=== PATIENT | female | born 1940 | race Caucasian/White ===

== ENCOUNTER 2017-10-04 14:37 | Observation (INO) | payer OTHER ==
[~2017-10-04] VITALS: Ht 170.2 cm; Wt 85.7 kg
[~2017-10-04 14:37] MED LIST: ACETYL L-CARNI500 MG PO; ALPHA LIPOIC AC50 M1 PO; BETA CAROT10000 UNIT PO; BIOTIN5 MG PO; CALCIUM AND MA1 EACH PO; CHROMIUM PICO200 MC1 PO; CO Q-10100 MG PO; DIGESTIVE EN1 TABLET PO; DIOVAN160 MG PO; EVENING PRIMRO500 M1 PO; FOLIC ACID0.8 MG PO; GINKGO BILOBA120 MG PO; GLUCOSAMINE &1 EACH PO; L-ARGININE500 MG PO; LECITHIN PO; LEVOTHYROXINE50 MCG PO; LIPITOR5 MG PO; LISINOPRIL10 MG PO; LUTEIN 15 MG S1 EACH PO; MSM1000 MG PO; MULTIVITAMINS1 EAC3 PO; NIASPAN,SLO-N1000 MG PO; NIASPAN,SLO-NI500 MG PO; SPIRULINA500 MG PO; TRIPLE OMEGA 31 EACH PO; UBIQUINOL PO; VITAMIN C500 M1 PO; VITAMIN D31000 UNIT PO; VITAMIN E COMP1 EACH PO; ZINC30 M1 PO; [UNRECOGNIZED DRUG - OTHER] PO; [UNRECOGNIZED DRUG - OTHER] PO; [UNRECOGNIZED DRUG - OTHER] PO
[2017-10-04 14:57] LABS: HEMOGLOBIN 14.4 G/DL (11.9-15.5); MCH 30.9 PG (29.0-34.0); MCHC 35.1 G/DL (30.0-36.0); PLATELET COUNT 225 K/uL (156-360); RBC DIS.WIDTH-CV 12.3 % (11.8-14.6); RBC DIS.WIDTH-SD 39.7 % (39-53); RED BLOOD COUNT 4.66 M/uL (3.80-5.20); WHITE BLOOD COUNT 6.4 K/uL (4.1-10.2)
[2017-10-04 15:05] LABS: CHLORIDE 102 mEq/L (99-109); POTASSIUM 3.7 mEq/L (3.7-5.4); PTT 28.4 SEC (25-37); SODIUM 139 mEq/L (136-147)
[2017-10-04 15:07] LABS: GLUCOSE 105 mg/dL (70-99)
[2017-10-04 15:11] LABS: CREATININE 0.7 mg/dL (0.6-1.3); GFR ESTIMATE (CALCULATED) > 59 mL/min/; UREA NITROGEN (BUN) 11 mg/dL (9-23)
[2017-10-04 15:19] LABS: TROP-I INTERPRETATION NEGATIVE; TROPONIN-I < 0.01 ng/mL (0.0-0.30)
[2017-10-04 15:51] LABS: APPEARANCE CLEAR ((CLEAR)); BILIRUBIN NEGATIVE; BLOOD NEGATIVE; COLOR YELLOW ((YELLOW)); GLUCOSE (STRIP) NEGATIVE; KETONES NEGATIVE; LEUKOCYTES NEGATIVE; NITRITE NEGATIVE; PROTEIN (STRIP) NEGATIVE; SPECIFIC GRAVITY 1.006 (1.000-1.030); UCUL ADDED? NO; UROBILINOGEN 0.2 MG/DL (0.2-1.0)
[2017-10-04] MEDS ORDERED: [UNRECOGNIZED DRUG - OTHER] PO (17:22)
[2017-10-04] MEDS ORDERED: [UNRECOGNIZED DRUG - OTHER] PO (17:23)
[2017-10-04] MEDS ORDERED: [UNRECOGNIZED DRUG - OTHER] PO (17:23)
[2017-10-04] MEDS ORDERED: MACUGUARD PO (17:23)
[2017-10-04 21:14] LABS: HDL CHOLESTEROL 60 MG/DL (Desirable>=50); LDL CHOLESTEROL 138 mg/dL (Desirable<100); NON-HDL CHOLESTEROL 186 mg/dL (Desirable<160); TOTAL CHOLESTEROL 246 mg/dL (Desirable<200); TRIGLYCERIDES 240 MG/DL (Normal: <150)
[2017-10-04 21:23] VITALS: BP 143/89
[2017-10-05 06:01] LABS: HEMATOCRIT 36.9 % (36.0-46.0); MCH 29.9 PG (29.0-34.0); MCHC 33.3 G/DL (30.0-36.0); MCV 89.8 FL (83-99); PLATELET COUNT 206 K/uL (156-360); RBC DIS.WIDTH-CV 12.3 % (11.8-14.6); RBC DIS.WIDTH-SD 40.9 % (39-53); RED BLOOD COUNT 4.11 M/uL (3.80-5.20); WHITE BLOOD COUNT 4.1 K/uL (4.1-10.2)
[2017-10-05 06:08] LABS: HEMOGLOBIN 12.3 G/DL (11.9-15.5)
[2017-10-05 06:15] LABS: ALBUMIN 3.7 G/DL (3.2-4.8); ALKALINE PHOSPHATASE 32 IU/L (3-129); ALT (GPT) 14 IU/L (3-49); AST (GOT) 15 IU/L (2-34); CHLORIDE 104 MEQ/L (99-109); CREATININE 0.8 MG/DL (0.6-1.3); GFR ESTIMATE (CALCULATED) > 59 mL/min/; GLUCOSE 94 mg/dL (70-99); POTASSIUM 3.8 MEQ/L (3.7-5.4); SODIUM 136 MEQ/L (136-147); TOTAL BILIRUBIN 0.7 MG/DL (0.0-1.0); UREA NITROGEN (BUN) 12 mg/dL (9-23)
[2017-10-05 07:00] VITALS: BP 117/57
[2017-10-05 08:00] VITALS: BP 138/80
[2017-10-05 11:39] VITALS: BP 136/85
[2017-10-05 14:06] LABS: TROP-I INTERPRETATION NEGATIVE; TROPONIN-I < 0.01 ng/mL (0.0-0.30)
[2017-10-05 15:21] VITALS: BP 137/70
[2017-10-05 19:00] VITALS: BP 168/86
[2017-10-05 23:51] VITALS: BP 125/70
[2017-10-06 03:42] VITALS: BP 123/71
[2017-10-06 08:05] VITALS: BP 133/81
[2017-10-06 08:07] LABS: HEMOGLOBIN A1c (GLYCOHEMOGLOB) 5.5 % (Below 5.7)
[2017-10-06 10:51] LABS: TROP-I INTERPRETATION NEGATIVE; TROPONIN-I < 0.01 ng/mL (0.0-0.30)
[2017-10-06] MEDS ORDERED: ELIQUIS5 MG PO (11:03)
[2017-10-06] MEDS ORDERED: ATORVASTATIN CA10 MG PO (11:15)
[2017-10-06 11:41] VITALS: BP 130/82
== END 2017-10-06 12:20 | disposition home or self-care (01) ==
LOC: EME 14:37 → EDOF 18:48 → 5WEST 18:48 → EDOF 18:48 → ENRESERV 18:48 → EDOF 19:43 → ENRESERV 19:45 → 5WEST 21:19 → ENPENDDIS 10-06 11:21 → 5WEST 10-06 12:20
PROVIDERS: Emergency Medicine Emergency Medical Services; Internal Medicine; Internal Medicine Cardiovascular Disease; Nurse Practitioner Adult Health
DX: G45.9 Transient cerebral ischemic attack, unspecified (principal); R07.89 Other chest pain; Z85.72 Personal history of non-Hodgkin lymphomas; E78.5 Hyperlipidemia, unspecified; I10 Essential (primary) hypertension; Z86.73 Personal history of transient ischemic attack (TIA), and cerebral infarction without residual deficits; E04.2 Nontoxic multinodular goiter; I08.1 Rheumatic disorders of both mitral and tricuspid valves; I48.0 Paroxysmal atrial fibrillation; Z79.01 Long term (current) use of anticoagulants; E78.00 Pure hypercholesterolemia, unspecified; Z90.710 Acquired absence of both cervix and uterus; Z90.722 Acquired absence of ovaries, bilateral; Z82.49 Family history of ischemic heart disease and other diseases of the circulatory system; Z80.51 Family history of malignant neoplasm of kidney; Z82.61 Family history of arthritis; Z83.79 Family history of other diseases of the digestive system; Z88.2 Allergy status to sulfonamides
CPT/HCPCS: 70450; 70496; 70498; 70551; 71045; 80048; 80053; 80061; 81003; 82948; 83036; 84484; 85027; 85610; 85730; 93005; 93306; 99281; 99285; G0378; J7040